=== PATIENT | female | born 1985 | race Caucasian/White ===

== ENCOUNTER 2022-05-20 09:05 | Emergency (ER) | payer MEDICAID ==
[2022-05-20] MEDS ORDERED: Pantoprazole 40 MG Vial IVPUSH ONE (10:20)
[2022-05-20] MEDS ORDERED: Lactated Ringers 1,000 ML IV SCH (10:30)
[2022-05-20] MEDS ORDERED: Sucralfate Suspension 1 GM/10 ML Cup PO ONE (11:07)
== END 2022-05-20 13:05 | disposition home or self-care (01) ==
LOC: JD.ED 09:05
DX: K92.2 Gastrointestinal hemorrhage, unspecified (principal); R10.13 Epigastric pain
CPT/HCPCS: 36415; 80053; 83690; 84703; 85025; 86850; 86900; 86901; 96361; 96374; 99284; A9270; C9113; J7120; 99283